=== PATIENT | female | born 1960 | race Caucasian/White ===

== ENCOUNTER 2016-12-25 08:43 | Inpatient (IN) | payer BC ==
[2016-12-03 09:23] VITALS: BMI 38.0
--- NOTE | 2016-12-03 09:52 | PAT Medication Instructions ---
Service Date Dec 03, 2016. Current Home Medication List Ibuprofen Tab (Advil), 400-600 MG PO PRN Metoprolol Tartrate (Lopressor) (Lopressor), 100 MG PO QAM Valsartan/Hctz (Diovan Hct 160MG/25MG), 1 TAB PO QAM [Advair], 1 DOSE INH PRN Medication Instructions For Your Scheduled Surgery - Hold the following medications 10 days prior to surgery per surgeon's instructions: Ibuprofen Tab (Advil), 400-600 MG PO PRN - Hold the following medications the morning of surgery: Valsartan/Hctz (Diovan Hct 160MG/25MG), 1 TAB PO QAM - Take the following medications the morning of surgery with a sip of water OTHERWISE NOTHING TO EAT OR DRINK AFTER MIDNIGHT: [Advair], 1 DOSE INH PRN Metoprolol Tartrate (Lopressor) (Lopressor), 100 MG PO QAM - Take the following medications as scheduled the night before surgery: [Advair], 1 DOSE INH PRN If you have any questions please call us at [phone] or [phone] or [phone]
[2016-12-03 10:50] LABS: BASO % 0.4 %; BASO ABS # 0.02 K/uL (0-0.2); COMPLETE YES; EOS % 2.2 %; HEMATOCRIT 38.7 % (37-47); IG% 0.2 %; LYMPH % 32.8 %; MEAN CELL VOLUME 91.9 fL (80-100); MEAN CORPUSCULAR HEMOGLOBIN 31.1 pg (25-34); MEAN CORPUSCULAR HGB CONC 33.9 g/dl (32-36); MEAN PLATELET VOLUME 10.9 fL (7.4-10.4); NEUT % 57.4 %; PLATELET COUNT 202 K/uL (130-400); RED BLOOD COUNT 4.21 M/uL (4.2-5.4); WHITE BLOOD COUNT 4.57 K/uL (4.8-10.8)
[2016-12-03 10:56] LABS: BUN/CREATININE RATIO 22.4 (10-20); CALCIUM 9.1 mg/dl (8.5-10.1); CREATININE 0.93 mg/dl (0.60-1.20); POTASSIUM 3.4 mmol/L (3.5-5.1)
[2016-12-03 11:21] LABS: MANUAL MICROSCOPIC REQUIRED? NO; URINE APPEARANCE CLEAR (CLEAR); URINE BILIRUBIN NEG (NEG); URINE COLOR YELLOW; URINE NITRITE NEG (NEG); URINE SPECIFIC GRAVITY 1.025 (1.000-1.030); UROBILINOGEN NEG (NEG)
[2016-12-03 11:22] LABS: REVIEW REQ? NO
[~2016-12-25] VITALS: Ht 162.6 cm; Wt 101.3 kg
[2016-12-25] VITALS (8 sets, daily range): BP systolic 106–135; BP diastolic 63–78; PULSE 52–76; TEMP 35.7–36.5; O2SAT 90–98; Ht 162.6 cm; Wt 101.3 kg
[~2016-12-25 08:43] MED LIST: ADVAIR INH; CEFAZOLIN 2000 MG/60 ML D5W IV SCH; IBUP-103 PO; LACTATED RINGER'S 1000ML 1,000 ML IV SCH; METO100T14 PO; VALS160T60 PO
[2016-12-25] MEDS ORDERED: ATROPINE SULFATE 0.1 MG/ML 5ML SYR IV PRN (08:45)
[2016-12-25] MEDS ORDERED: HYDROmorphone INJ 1 MG/ML SYR IV PRN (08:45)
[2016-12-25] MEDS ORDERED: ONDANSETRON INJ 2 MG/ML 2 ML VIAL IV PRN ×2 (08:45→13:00)
[2016-12-25] MEDS ORDERED: PROMETHAZINE HCL INJ 12.5 MG in SODIUM CHLORIDE 0.9% 50ML 50 ML IV PRN ×2 (08:45→13:00)
[2016-12-25] MEDS ORDERED: NURSING VERBAL MED ORDER ONE ×2 (09:45→11:00)
[2016-12-25] MEDS ORDERED: SCOPOLAMINE 1.5 MG TDSY TD ONE (09:56)
[2016-12-25] MEDS ORDERED: LACTATED RINGER'S 1000ML 1,000 ML IV SCH (10:02)
--- NOTE | 2016-12-25 10:05 | History & Physical Bridge Note ---
H&P Re-Evaluation Bridge Note: I have examined the patient, reviewed the History & Physical and in the interval since the performance of the History & Physical I have noted the following changes of clinical significance: No changes noted
--- NOTE | 2016-12-25 10:06 | History and Physical ---
History & Physical Date Dec 25, 2016. Chief Complaint Back and leg pain History of Present Illness The patient is a 56 year old female with complaints of Past Medical/Surgical History Medical Problems: (1) Infection of implant Additional History Hepatic Disease: No Endocrine Disorder: No Kidney Disease: No Hypertension: No Heart Disease: No Bleeding Tendencies: No Infectious Diseases: No Allergies Coded Allergies: BEE STING (Verified Allergy, Severe, SEVERE SWELLING,SOB,ANAPHYLAXIS, 12/25) Iodinated Diagnostic Agents (Verified Allergy, Severe, anaphylaxis, ) Cephalosporins (Verified Allergy, Intermediate, HIVES, 12/25/16) Gabapentin (Verified Adverse Reaction, Intermediate, FACIAL TREMORS, ) Epinephrine (Verified Adverse Reaction, Unknown, PER PATIENT "GIVEN TOO MUCH AFTER BEE STING.", 12/25/16) WAS IN ICU X 3 DAYS Fentanyl (Verified Adverse Reaction, Unknown, FENTANYL PATCH-SEVERE HEADACHES, 12/25/16) Lidocaine (Verified Adverse Reaction, Unknown, HEADACHES, 12/25/16) Home Medications Scheduled Ibuprofen Tab (Advil), 400-600 MG PO PRN Metoprolol Tartrate (Lopressor) (Lopressor), 100 MG PO QAM Valsartan/Hctz (Diovan Hct 160MG/25MG), 1 TAB PO QAM [Advair], 1 DOSE INH PRN Physical Examination Skin: warm/dry, no rash Eyes: normal inspection, EOMI, sclerae normal ENT: normal ENT inspection, pharynx normal Head: normocephalic, atraumatic Neck: supple, no adenopathy, trachea midline Respiratory/Chest: lungs clear, normal breath sounds, no respiratory distress Cardiovascular: regular rate, rhythm, no edema, no murmur Abdomen / GI: normal bowel sounds, non tender Back: normal inspection Extremities: normal inspection, normal range of motion Neurologic/Psych: no motor/sensory deficits, alert, normal reflexes, oriented x 3 Diagnosis Lumbar spinal stenosis L3 4 Plan of Treatment Lumbar decompression and fusion L3 4 removal of instrumentation L4 5
[2016-12-25] MEDS ORDERED: FENTANYL CITRATE INJ 50 MCG/1 ML 2 ML VIAL ONE ×4 (10:08→12:28)
[2016-12-25] MEDS ORDERED: MIDAZOLAM HCL 1 MG/ML 2ML VIAL ONE (10:08)
[2016-12-25] MEDS ORDERED: SCOPOLAMINE 1.5 MG TDSY TD SCH (10:15)
[2016-12-25] MEDS ORDERED: BACITRACIN 50000 UNIT VIAL ONE (10:41)
[2016-12-25] MEDS ORDERED: SODIUM CHLORIDE 0.9% PF 50 ML VIAL ONE (10:41)
[2016-12-25] MEDS ORDERED: CLINDAMYCIN 600 MG/54 ML D5W IV ONE (10:44)
[2016-12-25] MEDS ORDERED: BUPIVACAINE/EPINEPHRINE 0.5% MPF 1:200,000 10 ML VIAL ONE (10:45)
[2016-12-25] MEDS ORDERED: HYDROmorphone INJ 2 MG/ML SYR/VIAL ONE ×3 (11:19→13:04)
[2016-12-25] MEDS ORDERED: ONDANSETRON INJ 2 MG/ML 2 ML VIAL ONE ×2 (11:56→13:05)
[2016-12-25] MEDS ORDERED: RANITIDINE HCL 25 MG/ML INJ ONE (11:56)
[2016-12-25] MEDS ORDERED: METOCLOPRAMIDE HCL INJ 5 MG/ML 2 ML VIAL ONE (11:56)
[2016-12-25] MEDS ORDERED: EpHEDrine SULFATE 50MG/5ML SYR ONE ×2 (11:56→13:05)
[2016-12-25] MEDS ORDERED: ROCURONIUM BROMIDE 10 MG/ML 5 ML VIAL ONE ×2 (11:56→13:05)
[2016-12-25] MEDS ORDERED: PROPOFOL IV EMULSION 10 MG/ML 20 ML VIAL IV ONE (11:56)
[2016-12-25] MEDS ORDERED: DEXAMETHASONE SOD INJ 4 MG/ML VIAL ONE (11:56)
[2016-12-25] MEDS ORDERED: LIDOCAINE HCL 2% 2 ML VIAL (20MG/ML) ONE (11:56)
[2016-12-25] MEDS ORDERED: SODIUM CHLORIDE 0.9% 1000ML 1,000 ML IV SCH (12:52)
[2016-12-25] MEDS ORDERED: FLOSEAL HEMOSTATIC MATRIX 10ML TOP ONE (12:53)
[2016-12-25] MEDS ORDERED: DO NOT ADMINISTER FLU VACCINE PRN ×3 (13:00)
[2016-12-25] MEDS ORDERED: LORAZEPAM 0.5 MG TAB PO PRN (13:00)
[2016-12-25] MEDS ORDERED: ACETAMINOPHEN IV 100 ML IV PRN (13:00)
[2016-12-25] MEDS ORDERED: hydrOXYzine HCL 25 MG TAB PO PRN (13:00)
[2016-12-25] MEDS ORDERED: FAMOTIDINE 20 MG TAB PO PRN (13:00)
[2016-12-25] MEDS ORDERED: ALUMINUM/MAGNESIUM SUSP 30 ML UDC PO PRN (13:00)
[2016-12-25] MEDS ORDERED: MAGNESIUM HYDROXIDE SUSP 30 ML UDC PO PRN (13:00)
[2016-12-25] MEDS ORDERED: LORAZEPAM INJ 0.5 MG in SYRINGE 0.75 ML IV PRN (13:00)
[2016-12-25] MEDS ORDERED: DO NOT ADMINISTER PNEUMOCOCCAL VACCINE PRN ×2 (13:00)
[2016-12-25] MEDS ORDERED: SOD PHOSPHATE/SOD BIPHOSPHATE ENEMA 132 ML BTL PR PRN (13:00)
[2016-12-25] MEDS ORDERED: NALOXONE HCL 0.4 MG/1 ML VIAL/CARP IV PRN ×2 (13:00)
[2016-12-25] MEDS ORDERED: ACETAMINOPHEN 500 MG TAB PO PRN (13:00)
[2016-12-25] MEDS ORDERED: BISACODYL 10 MG SUPP PR PRN (13:00)
[2016-12-25] MEDS ORDERED: METOCLOPRAMIDE HCL INJ 5 MG/ML 2 ML VIAL IV PRN (13:00)
[2016-12-25] MEDS ORDERED: GLYCOPYRROLATE INJ 0.2 MG/ML VIAL ONE (13:05)
[2016-12-25] MEDS ORDERED: NEOSTIGMINE METHYLSULFATE 1 MG/ML 10ML VIAL ONE (13:05)
--- NOTE | 2016-12-25 13:07 | [facility] Operative Report ---
Operative Report Operative Date Dec 25, 2016. Pre-Operative Diagnosis Lumbar spinal stenosis L3-L4 Post-Operative Diagnosis Lumbar spinal stenosis L3-L4 Procedure(s) Performed #1 removal of posterior instrumentation L4 5. #2 expiration of fusion L4 5. #3 lumbar decompression medial facetectomies foraminotomies L3 4. #4 posterior spinal fusion L3 4. #5 placement posterior instrumentation L3 4. #6 interbody fusion L3 4. #7 placement peek cage 12 x 22 at L3 4. #8 placement of locally harvested morcellized autograft and posterior lateral gutters. #9 placement infuse collagen sponge about mask graft the posterior lateral gutters Carmen bone graft in the interbody space. Surgeon Dr. Blair Gunderson Ultrasound Applications Specialist Surgeon(s) Adrian De La Rosa PA-C Estimated Blood Loss 300 cc Findings Lumbar spinal stenosis Specimens Specimen A. Explanted Spine Hardware Description of Procedure Patient was met with preoperative early case discussed all questions are dressed. After informed consent patient was taken back to the operative suite after undergoing intubation was placed in a prone position the [place] table top Lonny frame. All bony promises well-padded eyes inspected to ensure there is no external pressure placed upon them. This point the lumbar spines prepped draped nostril fashion. Sharp dissection with the assistance of Bovie cautery performed onto an exposing the lamina and transverse processes of L3 in the instrumentation L4 5 bilaterally. I proceeded remove the hardware bilaterally explored the fusion mass noting it to be mature and intact. Then performed a complete laminectomy of L3 including medial facet was foraminotomies bilaterally. After complete decompression pedicle screws are placed in L3 and 4 bilaterally with assistance of fluoroscopy in the appropriate size chico placed. Through a trans-foraminal approach on the right a complete discectomy performed and plate created to subcortical bleeding bone and a 12 x 22 mm peek cage filled with Carmen bone graft tapped in position. The rods and then compressed and locked into final position bilaterally. The transverse processes of 3 and 4 burred to subcortical bleeding bone. Infuse collagen sponge mask graft locally harvested morcellized autograft was placed in the posterior lateral gutters. A 15 round TIFFANY drain was inserted. Incision was then closed with 1 Vicryl in the fascia 2-0 Vicryl subcutaneously 4-0 Monocryl for final skin closure Steri-Strip sterile dressing placed patient we can taken to PACU stable condition. Please note Adrian Hancock was present at the entire procedure involved in patient positioning complex portions of the procedure and final skin closure. I attest to the content of the Intraoperative Record and any orders documented therein. Any exceptions are noted below.
--- NOTE | 2016-12-25 13:08 | DIAGNOSTIC IMAGING REPORT ---
LUMBAR SPINE, INTRAOPERATIVE FLUOROSCOPY HISTORY: L3-L4 decompression and fusion. FLUOROSCOPY TIME: 9 seconds. FINDINGS: Intraoperative fluoroscopy was provided for the lumbar spine. 2 fluoroscopic spot images were obtained. Posterior decompression fusion at L3-L4 with pedicle screws and rods. The hardware appears intact. IMPRESSION: Fluoroscopy provided for a L3-L4 posterior decompression and fusion. Electronically signed by: Wilfredo Mahmood M.D. 12/25/2016 1:07 PM Dictated Date/Time: 12/25/2016 1:06 PM
[2016-12-25] MEDS ORDERED: HYDROmorphone HCL 0.5MG/ML 50 ML CASSETTE ONE (13:22)
--- NOTE | 2016-12-25 13:57 | Anesthesiology Progress Note ---
Anesthesia Post Op Note Date & Time Dec 25, 2016 at 13:57 Vital Signs Pain Intensity: 2 Vital Signs Past 12 Hours Date Time Temp Pulse Resp B/P (MAP) Pulse Ox O2 Delivery O2 Flow Rate FiO2 12/25/16 13:15 36.7 57 14 130/68 99 Mask 10 12/25/16 09:05 36.4 52 18 135/75 95 Room Air Notes Mental Status: alert / awake / arousable, participated in evaluation Pt Amnestic to Procedure: Yes Nausea / Vomiting: adequately controlled Pain: adequately controlled Airway Patency, RR, SpO2: stable & adequate BP & HR: stable & adequate Hydration State: stable & adequate Anesthetic Complications: no major complications apparent
[2016-12-25] MEDS: HYDROmorphone HCL 0.5MG/ML 50 ML CASSETTE IV PRN ×2 (14:09→18:52)
[2016-12-25] MEDS: LACTATED RINGER'S 1000ML 1,000 ML IV SCH ×2 (14:48→19:09)
[2016-12-25] MEDS: CHECK SCOPOLAMINE PATCH PLACEMENT SCH ×2 (15:04→22:33)
[2016-12-25] MEDS: CLINDAMYCIN IV 600 MG in DEXTROSE 5% 50ML 50 ML IV SCH (17:25)
[2016-12-25] MEDS: DEXAMETHASONE INJ 6 MG in SYRINGE 0 ML IV SCH (19:18)
[2016-12-25] MEDS: DOCUSATE SODIUM/SENNA 50/8.6MG TAB PO SCH (20:40)
[2016-12-26] MEDS: CLINDAMYCIN IV 600 MG in DEXTROSE 5% 50ML 50 ML IV SCH (01:46)
[2016-12-26] MEDS: LACTATED RINGER'S 1000ML 1,000 ML IV SCH (01:48)
[2016-12-26 03:56] VITALS: BP 116/69; PULSE 84; TEMP 36.8; O2SAT 87
[2016-12-26] MEDS: DEXAMETHASONE INJ 6 MG in SYRINGE 0 ML IV SCH ×2 (03:57→12:12)
[2016-12-26 04:04] VITALS: O2SAT 94
[2016-12-26] MEDS ORDERED: DC PCA ONE (06:00)
[2016-12-26] MEDS ORDERED: HYDROmorphone INJ 0.5 MG/0.5 ML SYR IV PRN (06:00)
[2016-12-26 06:05] LABS: COMPLETE YES; IG% 0.3 %; LYMPH % 5.3 %; LYMPH ABS # 0.61 K/uL (1.2-3.4); MEAN CELL VOLUME 91.4 fL (80-100); MEAN CORPUSCULAR HEMOGLOBIN 30.5 pg (25-34); MEAN CORPUSCULAR HGB CONC 33.3 g/dl (32-36); MEAN PLATELET VOLUME 10.4 fL (7.4-10.4); MONO % 1.5 %; NEUT % 92.9 %; PLATELET COUNT 192 K/uL (130-400); RED BLOOD COUNT 3.61 M/uL (4.2-5.4)
[2016-12-26] MEDS ORDERED: NURSING DECISION MEDICATION ORDER SCH (06:15)
[2016-12-26 06:47] LABS: BUN/CREATININE RATIO 17.6 (10-20); CALCIUM 8.6 mg/dl (8.5-10.1); CREATININE 0.93 mg/dl (0.60-1.20); POTASSIUM 4.1 mmol/L (3.5-5.1)
[2016-12-26 06:49] VITALS: BP 127/64; PULSE 74; TEMP 36.7; O2SAT 91
[2016-12-26] MEDS: CHECK SCOPOLAMINE PATCH PLACEMENT SCH ×3 (08:16→22:32)
[2016-12-26] MEDS: OXYCODONE HCL IR 5 MG TAB (IMMEDIATE RELEASE) PO PRN ×4 (08:20→22:30)
[2016-12-26] MEDS: VALSARTAN 80 MG TAB PO SCH (08:21)
[2016-12-26] MEDS: HYDROCHLOROTHIAZIDE 25 MG TAB PO SCH (08:21)
[2016-12-26] MEDS: METOPROLOL TARTRATE 100 MG TAB PO SCH (08:22)
[2016-12-26] MEDS ORDERED: RXC5 PO (08:34)
--- NOTE | 2016-12-26 08:35 | Discharge Instructions ---
Discharge Instructions Date of Service Dec 26, 2016. Admission Reason for Admission: Lumbar Spinal Stenosis Discharge Discharge Diagnosis / Problem: lumbar stenosis Discharge Goals Goal(s): Improve function Activity Recommendations Activity Limitations: per Instructions/Follow-up section . Instructions / Follow-Up Instructions / Follow-Up ACTIVITY RECOMMENDATIONS: SELF CARE INSTRUCTIONS AFTER THORACIC/LUMBAR FUSIONS 1. You may walk to your tolerance. It is good exercise for your legs and back. Expect some back and intermittent leg aches and pains. 2. You may perform "counter-top" level activities (make a sandwich, neto with a project, etc.). 3. No bending or lifting of more than 10 pounds or back twisting of any nature (roll like a log when turning in bed). 4. You may ride in a car for 20-30 minutes at a time. No driving until after your first visit with your doctor. 5. Frequent changes of position and restricting sitting to 30 minutes at a time will help limit the amount of back spasms and stiffness you may experience. 6. You may discontinue the use of ambulatory aids (cane, crutches, etc.) once your strength and confidence allow. 7. You may profile grinder the shower and let water strike your incision when you arrive home at least once daily. Do not take a tub bath, sit in a hot tub or go into a swimming pool until after your first recheck in the office. SPECIAL CARE INSTRUCTIONS: VERY IMPORTANT TO READ AND REVIEW A. Your surgical incision has been closed with a cosmetic suture under the skin that will dissolve in about 6 weeks. In 14 days, you can use a pair of clean scissors and cut the suture that is left outside of the skin at the ends of your incision. 1. The small skin tapes can be removed 7 days after surgery if they have not fallen off by that point. 2. You may keep the wound open to air as much as possible to promote healing after post-op day number 5 unless told otherwise by your doctor. 3. If you think the wound looks like it is becoming infected (redness or worsening drainage) and/or you are experiencing fever, chill or worsening back pain and muscle spasms, contact the office so that we may evaluate you as soon as possible. B. Complications are uncommon, but please contact us if you have any signs or symptoms of: 1. wound infection (fever higher than 102.5 degrees F, redness, separation of wound, drainage, or increasing pain from the incision) 2. blood clots in legs (pain, swelling, redness and warmth in legs) 3. urinary tract infection (fever higher than 102.5 degrees F, burning upon urination or increased frequency of urination) 4. nerve problems (inability to walk on your toes or heels, numbness, loss of bowel or bladder control) 5. any other symptoms that concern you C. Please call the office at if you have any concerns or questions about your operation or recovery. D. No smoking! Smoking drastically decreases the chance of a solid fusion. E. Do not take any anti-inflammatory medications (Indocin, Advil, Motrin, Aspirin, Naprosyn, etc.) as these may inhibit the chance of a solid fusion. Tylenol is okay to take for pain. MANAGING PAIN AFTER SPINAL SURGERY 1. Narcotic medication is intended for short-term use and will be provided for surgical pain. Surgical pain usually lasts for a period of 4-6 weeks. Narcotic medication includes Percocet, Vicodin, Darvocet, Tylenol #3 or Lortab. 2. Longer-term pain is more appropriately treated with non-narcotic medication such as Tylenol ES. 3. Muscle spasm is not appropriately treated with narcotics. Muscle relaxers such as Soma, Flexeril or Skelaxin can be used along with Tylenol ES. 4. Remember that we all live with some "aches and pains". This is not unusual or uncommon after an injury or as we get older. a. Back pain is expected and may include muscle spasms for 4 to 6 weeks after surgery. The pain should gradually improve. If the pain worsens for no apparent reason, please contact the office. b. Intermittent leg pain may also be experienced and should not be concerned about unless it worsens for no apparent reason. If so, please contact the office. 5. We will provide appropriate medication within the normal guidelines of their prescribed use. We will also be very cautious and aware of potential abuse and extended duration of patients' medication needs. a. Pain medications are for your comfort and to assist with sleep and rest so that the tissue can heal. They are not provided in order to return to normal activity and should not be used through the day. To do so or worsening pain at night can result from ongoing tissue damage and development of tolerance to the prescribed medicine. 6. Please allow 2-3 days to process refills. Prescriptions will not be mailed but must be picked up at the office. FOLLOW UP VISIT: Keep your scheduled follow-up appointment. Any questions, please call the office at . Current Hospital Diet Patient's current hospital diet: Regular Diet Discharge Diet Recommended Diet: Regular Diet Procedures Procedures Performed: #1 removal of posterior instrumentation L4 5. #2 expiration of fusion L4 5. #3 lumbar decompression medial facetectomies foraminotomies L3 4. #4 posterior spinal fusion L3 4. #5 placement posterior instrumentation L3 4. #6 interbody fusion L3 4. #7 placement peek cage 12 x 22 at L3 4. #8 placement of locally harvested morcellized autograft and posterior lateral gutters. #9 placement infuse collagen sponge about mask graft the posterior lateral gutters Carmen bone graft in the interbody space. Pending Studies Studies pending at discharge: no Medical Emergencies . Who to Call and When: Medical Emergencies: If at any time you feel your situation is an emergency, please call 911 immediately. . Non-Emergent Contact Non-Emergency issues call your: Primary Care Provider . "Provider Documentation" section prepared by Blair Gunderson. . VTE Core Measure Inpt VTE Proph given/why not?: Chester Cedeno, SCD's
[2016-12-26] MEDS ORDERED: VALSARTAN/HCTZ 80/12.5 MG TAB PO SCH (09:00)
--- NOTE | 2016-12-26 09:30 | Progress Note ---
Progress Note Date of Service Dec 26, 2016. Progress Note Patient is doing very nicely. Right leg symptoms markedly improved. Back pain controlled. Vital signs stable. Deficits excellent strength testing. Assessment status post lumbar depression fusion replant this time will initiate physical therapy advance bowel regimen anticipate home tomorrow possibly with a drain.
[2016-12-26 11:30] VITALS: BP 103/58; PULSE 74; TEMP 36.9; O2SAT 92
[2016-12-26 15:36] VITALS: BP 99/56; PULSE 60; TEMP 36.9; O2SAT 92
[2016-12-26] MEDS: DOCUSATE SODIUM/SENNA 50/8.6MG TAB PO SCH (20:51)
[2016-12-26 23:13] VITALS: BP 92/55; PULSE 65; TEMP 37; O2SAT 91
[2016-12-27] MEDS ORDERED: POLYETHYLENE (MIRALAX) 17 GM PACK PO SCH (06:00)
[2016-12-27] MEDS: OXYCODONE HCL IR 5 MG TAB (IMMEDIATE RELEASE) PO PRN (07:43)
[2016-12-27] MEDS: CHECK SCOPOLAMINE PATCH PLACEMENT SCH (07:43)
[2016-12-27 08:00] VITALS: BP 122/77; PULSE 64; TEMP 37; O2SAT 95
[2016-12-27] MEDS: HYDROCHLOROTHIAZIDE 25 MG TAB PO SCH (08:58)
[2016-12-27] MEDS: METOPROLOL TARTRATE 100 MG TAB PO SCH (08:58)
[2016-12-27] MEDS: VALSARTAN 80 MG TAB PO SCH (08:58)
--- NOTE | 2016-12-27 09:06 | Discharge Summary ---
Orthopedic Discharge Summary Admission Date/Reason Dec 25, 2016 at 10:00 Lumbar Spinal Stenosis. Discharge Date/Disposition Dec 27, 2016 Home Diagnosis Principal Diagnosis: Lumbar spinal stenosis Admission Physical Exam As per Admitting History & Physical. Hospital Course Patient underwent lumbar decompression fusion tolerated this well as taken to the orthopedic floor postoperatively. Postoperative leash progressed appropriately leg pain markedly improved. Pain well controlled. Subsequently discharged home. Discharge orders and instructions found the chart for further review. Discharge Instructions Please refer to the electronic Patient Visit Report (Discharge Instructions) for additional information.
[2016-12-27 09:35] VITALS: BP 122/77; PULSE 64; TEMP 37; O2SAT 95
== END 2016-12-27 10:14 | disposition home or self-care (01) | DRG 460 ==
LOC: C.ACU 08:43 → C.3E 10:00 → ENRESERV 13:41
PROVIDERS: ADMIT Orthopaedic Surgery Orthopaedic Surgery of the Spine; ATTEND Orthopaedic Surgery Orthopaedic Surgery of the Spine
PROC: 0SG00A1 (ICD-10-PCS; principal; 2016-12-25 10:45)
DX: M48.06 Spinal stenosis, lumbar region (principal)

== ENCOUNTER → 2018-01-05 | Outpatient (CLI) | payer BC ==
[~2018-01-05] MED LIST changes: -ADVAIR INH; -CEFAZOLIN 2000 MG/60 ML D5W IV SCH; -IBUP-103 PO; +IBUP-1449 PO; -LACTATED RINGER'S 1000ML 1,000 ML IV SCH
[2018-01-05 14:31] LABS: BASO % 0.5 %; BASO ABS # 0.03 K/uL (0-0.2); EOS % 1.7 %; EOS ABS # 0.11 K/uL (0-0.5); HEMATOCRIT 41.2 % (37-47); HEMOGLOBIN 13.6 g/dL (12.0-16.0); IG# 0.01 K/uL (0.00-0.02); LYMPH % 37.5 %; LYMPH ABS # 2.39 K/uL (1.2-3.4); MEAN CELL VOLUME 89.8 fL (80-100); MEAN CORPUSCULAR HEMOGLOBIN 29.6 pg (25-34); MEAN PLATELET VOLUME 11.7 fL (7.4-10.4); MONO % 4.9 %; MONO ABS # 0.31 K/uL (0.11-0.59); NEUT % 55.2 %; NEUT ABS # 3.52 K/uL (1.4-6.5); PLATELET COUNT 210 K/uL (130-400); RED CELL DISTRIBUTION WIDTH CV 13.8 % (11.5-14.5); RED CELL DISTRIBUTION WIDTH SD 45.6 fL (36.4-46.3); WHITE BLOOD COUNT 6.37 K/uL (4.8-10.8)
[2018-01-05 14:37] LABS: BLOOD UREA NITROGEN 20 mg/dl (7-18); CALCIUM 9.5 mg/dl (8.5-10.1); CARBON DIOXIDE 28 mmol/L (21-32); CREATININE 0.89 mg/dl (0.60-1.20); GLUCOSE 89 mg/dl (70-99); POTASSIUM 3.9 mmol/L (3.5-5.1); SODIUM 140 mmol/L (136-145)
--- NOTE | 2018-01-05 14:40 | DIAGNOSTIC IMAGING REPORT ---
TWO VIEW CHEST CLINICAL HISTORY: Preoperative examination. FINDINGS: PA and lateral chest radiographs are compared to study dated 10/15/2014 and correlated with chest CT dated 08/23/2013. The cardiomediastinal silhouette is unremarkable. There are foci of bibasilar scarring/atelectasis. No airspace consolidation or pleural effusion is seen. There is no pneumothorax. The skeletal structures are osteopenic. The bony thorax appears intact. Fusion hardware is noted in the upper lumbar spine. IMPRESSION: No active disease in the chest. Electronically signed by: Jamal Moise M.D. 01/05/2018 2:38 PM Dictated Date/Time: 01/05/2018 2:38 PM
[2018-01-05 14:42] LABS: INR 0.9 (0.9-1.1); PTT PATIENT 23.9 SECONDS (21.0-31.0)
== END | disposition home or self-care (01) ==
LOC: C.CPL 13:19
PROVIDERS: ATTEND Orthopaedic Surgery Orthopaedic Surgery of the Spine
DX: Z01.818 Encounter for other preprocedural examination (principal)

== ENCOUNTER 2020-12-27 05:51 | Observation (INO) ==
--- NOTE | 2020-12-10 09:06 | PAT Medication Instructions ---
Medication Instructions Date of Service December 10, 2020 Home Medications metoprolol tartrate 100 mg tablet 50 mg PO QAM valsartan 160 mg-hydrochlorothiazide 25 mg tablet 1 tab PO QAM ibuprofen 400 mg tablet 400 mg PO Q6H PRN mv-min-vit C-ascorb Dy-Vqk-Wjr-herb #124 333 mg-1.7 mg chewable tablet (Airborne (ascorbate sodium)) 2 tab PO QAM solifenacin 10 mg tablet 10 mg PO QAM ASK your surgeon for instructions ibuprofen 400 mg tablet 400 mg PO Q6H PRN STOP taking 2 weeks before surgery (or as soon as possible if surgery is within 2 weeks) mv-min-vit C-ascorb Yn-Tzs-Bqj-herb #124 333 mg-1.7 mg chewable tablet (Airborne (ascorbate sodium)) 2 tab PO QAM DO NOT take the morning of surgery valsartan 160 mg-hydrochlorothiazide 25 mg tablet 1 tab PO QAM solifenacin 10 mg tablet 10 mg PO QAM Take morning of surgery With a small sip of water, OTHERWISE NOTHING TO EAT OR DRINK AFTER MIDNIGHT: metoprolol tartrate 100 mg tablet 50 mg PO QAM Other Notes If you have any questions please call us at [phone] or [phone] or [phone] or [phone]
--- NOTE | 2020-12-13 10:41 | Anesthesiology Consultation ---
Date of Service December 13, 2020 Assessment & Plan (1) Encounter for pre-operative examination: - COVID screening: Per assessment on 12/13: Travel screen negative, no known COVID-19 positive contacts. Patient was COVID positive [place]-time 2020 ([facility]) > symptoms at time of body aches, headache, nausea, loss of taste/smell > resolved except diminished smell. Surgeon arranging preop COVID testing. Awaiting results. - S/P T11-L3 decompression/fusion, L3-L4 hardware removal (01/19/18): Grade view 1, MAC#3, ETT 7.0 at [facility] - Hx PONV: good response with scope patch in the past. Will order for AM DOS. Chart Review Chart Review: Acceptable Risk for Surgery and Patient seen in Pre Admission Testing Teaching & Discussion Pre-Anesthesia Teaching/Discussion Notes: Instructed NPO after midnight before surgery,except medications with 15 cc of water. Medication instructions provided according to the PAT guidelines. History Surgery Operation Date: 12/27/20 07:45 Proposed Procedures p C5-C7 Anterior Cervical Discetomy and Fusion Spinal Cord Monitoring - Blair Gunderson, Height/Weight Height: 5 ft 4 in Weight: 97.3 kg Allergies Allergy/AdvReac Type Severity Reaction Status Date / Time Iodinated Contrast Media Allergy Severe Anaphylaxis Verified 12/04/20 08:35 [Iodinated Contrast- Oral and IV Dye] Cephalosporins Allergy Intermediate Hives Verified 12/04/20 08:35 cephalexin [From Keflex] Allergy Unknown Hives Verified 12/04/20 08:35 gabapentin AdvReac Intermediate Facial Verified 12/13/20 11:14 tremors clarithromycin [From Biaxin] AdvReac Unknown Nausea, Verified 12/13/20 11:14 headache epinephrine AdvReac Unknown Heart Verified 12/13/20 11:14 racing, severe headache fentanyl AdvReac Unknown Headache Verified 12/04/20 08:35 lidocaine AdvReac Unknown Headache Verified 12/13/20 11:14 (with lidocaine patch) BEE STING Allergy Severe Severe Uncoded 12/13/20 11:14 swelling, dyspnea, anaphylaxis Medications Home Medications Medication Instructions Recorded Confirmed Last Taken metoprolol tartrate 100 mg tablet 50 mg PO QAM #0 tab 12/03/16 12/04/20 10/31/19 06:00 valsartan 160 1 tab PO QAM #0 tab 12/03/16 12/04/20 10/31/19 06:00 mg-hydrochlorothiazide 25 mg tablet ibuprofen 400 mg tablet 400 mg PO Q6H PRN 10/26/19 12/04/20 10/29/19 mv-min-vit C-ascorb 2 tab PO QAM 12/04/20 12/04/20 Unknown Hk-Myz-Itm-herb #124 333 mg-1.7 mg chewable tablet (Airborne (ascorbate sodium)) solifenacin 10 mg tablet 10 mg PO QAM 12/04/20 12/04/20 Unknown Past Medical History Medical History Asthma Seasonal Chronic back pain Degenerative disc disease Endometriosis History of COVID-19 Dx [place]-time 2019 ([facility]) > symptoms at time of body aches, headache, nausea, loss of taste/smell > resolved except diminished smell History of DVT (deep vein thrombosis) Remote several years ago (RLE) post-op Migraines Remote hx years ago Neck pain Limited ROM Obesity Peripheral neuropathy right leg numbness s/p back surgery RSD (reflex sympathetic dystrophy) LLE affected (remission x years) Scoliosis Spinal stenosis Urinary, incontinence, stress female Exercise / Class Metabolic Activity II 4-5 Yardwork/Stairs/Walk up hill (one FS (no CP, no SOB)) Past Family History Family History Other No known health problems Past Surgical History Surgical History History of cardiac radiofrequency ablation SVT/PVC's status post ablation 10+ years ago- "controlled" with beta derik History of carpal tunnel release Left History of colonoscopy History of hip surgery Left hip removal (bone spur) Hx of foot surgery Tarsal tunnel release Hx of repair of rotator cuff Right Hx of spinal fusion Lumbar fusion x3, revision x1 T11-L3 decompression/fusion, L3-L4 hardware removal (01/19/18): Grade view 1, MAC#3, ETT 7.0 at [facility] S/P insertion of spinal cord stimulator Subsequently removed S/P ELAN-BSO Past Anesthesia History No Hx of Anesthesia Complications (except PONV) and No Family Hx of Anesthesia Complications History of PONV No Hx of Motion Sickness and History of PONV (remote issue; no issue with more recent surgery with scopalamine patch) STOP BANG Total 3 Social History Smoking Status: Never smoker Do You Dip or Chew Tobacco: No Hx Alcohol Use: No Hx Substance Use: No substance use type: does not use Review of Systems Patient denies chest pain, shortness of breath, dyspnea on exertion, fever, chills, cough, wheezing, palpitations. Physical Exam Vital Signs VITALS BP 109/75 P 58 TEMP 98.4 SP02 96%RA RESP 18 PHYSICAL Decreased cervical extension range of motion 2/2 cervicalgia. Full TMJ range of motion. TMD 1 finger breaths Mallampati Score 4 Dentition: missing sides Lungs: clear throughout to auscultation Cardiac: regular rate and rhythm, no murmurs noted Spine: normal Carotid arteries: negative bruit Extremities: no edema Lab Results Anesthesia Preop Results Results Anesthesia Widget: WBC 5.15 K/uL (4.8-10.8) 12/13/20 Hgb 12.8 g/dL (12.0-16.0) 12/13/20 Hct 38.9 % (37-47) 12/13/20 Plt 218 K/uL (130-400) 12/13/20 PT 9.8 Seconds (9.0-12.0) 12/13/20 PTT 25.1 Seconds (21.0-31.0) 12/13/20 INR 1.0 (0.9-1.1) 12/13/20 Urine Color Yellow 12/13/20 Urine Appearance Clear (Clear) 12/13/20 Urine pH 5.5 (4.5-7.5) 12/13/20 Urine Specific Protection 1.024 (1.000-1.030) 12/13/20 Urine Protein Negative (Negative) 12/13/20 Urine Glucose (UA) Negative (Negative) 12/13/20 Urine Ketones Negative (Negative) 12/13/20 Urine Blood Negative (Negative) 12/13/20 Urine Nitrite Negative (Negative) 12/13/20 Urine Bilirubin Negative (Negative) 12/13/20 Urine Urobilinogen Negative (Negative) 12/13/20 Urine Leukocyte Esterase Trace (Negative) H 12/13/20 Urine WBC (Auto) 1-5 /hpf (0-5) 12/13/20 Urine RBC (Auto) 0-4 /hpf (0-4) 12/13/20 Urine Hyaline Casts (Auto) 1-5 /lpf (0-5) 12/13/20 Urine Epithelial Cells (Auto) >30 /lpf (0-5) H 12/13/20 Urine Bacteria (Auto) Negative (Negative) 12/13/20 Blood Type A Negative 12/13/20 Antibody Screen NEGATIVE 12/13/20 Testing Laboratory Results 12/03/20 SODIUM 143 POTASSIUM 3.9 CHLORIDE 106 CO2 25 BUN 21 CREATININE 1.0 GLUCOSE 106 Electrocardiogram Date: 12/13/20 Findings: + SB @ (52) Chest X-Ray Date: 12/13/20 FINDINGS: No pneumothorax or no pleural effusions. The heart is borderline enlarged. No focal lung consolidations to suggest pneumonia. No evidence for pulmonary edema. Thoracolumbar spinal fusion rods are partially visualized. There are low lung volumes. IMPRESSION: Borderline enlargement of the cardiac silhouette. Otherwise, no acute process within the chest.
[2020-12-27] MEDS ORDERED: LR 15ML/HR IV SCH (06:00)
[2020-12-27] MEDS ORDERED: CeleBREX 200 MG CAP PO SCH (06:00)
[2020-12-27] MEDS ORDERED: Scopolamine 1 MG TDSY TD SCH (06:00)
[2020-12-27] MEDS ORDERED: ACETAMINOPHEN 500 MG TAB PO SCH (06:00)
[2020-12-27] MEDS ORDERED: GABAPENTIN 600 MG DOSE PO SCH (06:00)
[2020-12-27] MEDS ORDERED: PROPOFOL IV EMULSION 10 MG/ML 100 ML VIAL IV ONE (06:45)
[2020-12-27] MEDS ORDERED: ONDANSETRON INJ 2 MG/ML 2 ML VIAL IV PRN (06:57)
[2020-12-27] MEDS ORDERED: ePHEDrine sulfate 50 MG/ML AMP IV PRN (06:57)
[2020-12-27] MEDS ORDERED: ATROPINE SULFATE 0.1 MG/ML 10ML SYR IV PRN (06:57)
[2020-12-27] MEDS ORDERED: LARYING-O-JET KIT (LTA) ONE (07:03)
[2020-12-27] MEDS ORDERED: HYDROmorphone INJ 2 MG/ML SYR/VIAL ONE (07:03)
[2020-12-27] MEDS ORDERED: LIDOCAINE 2% 2 ML VIAL/AMP(20MG/ML) INFIL ONE (07:03)
[2020-12-27] MEDS ORDERED: DEXAMETHASONE SOD INJ 4 MG/ML VIAL ONE (07:03)
[2020-12-27] MEDS ORDERED: MIDAZOLAM HCL 1 MG/ML 2ML VIAL ONE (07:03)
[2020-12-27] MEDS ORDERED: PROPOFOL IV EMULSION 10 MG/ML 20 ML VIAL IV ONE ×2 (07:03→09:49)
[2020-12-27] MEDS ORDERED: ONDANSETRON INJ 2 MG/ML 2 ML VIAL ONE (07:03)
--- NOTE | 2020-12-27 07:27 | History & Physical Bridge Note ---
Date of Service December 27, 2020 History & Physical Bridge Note I have examined the patient, reviewed the History & Physical and in the interval since the performance of the History & Physical I have noted the following changes of clinical significance: no changes noted
--- NOTE | 2020-12-27 07:29 | History & Physical Report ---
Date of Service December 27, 2020 Assessment & Plan (1) Cervical stenosis of spinal canal: Plan: C5-C7 anterior cervical discectomy and fusion History of Present Illness Chief Complaint: Neck and arm pain Primary Care Provider: Brad Long MD This is a 52-year-old female presents with worsening neck and arm symptoms. Failing since course of nonoperative care she is here for surgical invention. Allergies Allergy/AdvReac Type Severity Reaction Status Date / Time Iodinated Contrast Media Allergy Severe Anaphylaxis Verified 12/27/20 06:11 [Iodinated Contrast- Oral and IV Dye] Cephalosporins Allergy Intermediate Hives Verified 12/27/20 06:11 cephalexin [From Keflex] Allergy Unknown Hives Verified 12/27/20 06:11 gabapentin AdvReac Intermediate Facial Verified 12/27/20 06:11 tremors clarithromycin [From Biaxin] AdvReac Unknown Nausea, Verified 12/27/20 06:11 headache epinephrine AdvReac Unknown Heart Verified 12/27/20 06:11 racing, severe headache fentanyl AdvReac Unknown Headache Verified 12/27/20 06:11 lidocaine AdvReac Unknown Headache Verified 12/27/20 06:11 (with lidocaine patch) BEE STING Allergy Severe Severe Uncoded 12/27/20 06:11 swelling, dyspnea, anaphylaxis Home Medications Medication Instructions Recorded Confirmed Type metoprolol tartrate 100 mg tablet 50 mg PO QAM #0 tab 12/03/16 12/27/20 History valsartan 160 1 tab PO QAM #0 tab 12/03/16 12/27/20 History mg-hydrochlorothiazide 25 mg tablet (Diovan HCT) ibuprofen 400 mg tablet 400 mg PO Q6H PRN 10/26/19 12/27/20 History mv-min-vit C-ascorb 2 tab PO QAM 12/04/20 12/27/20 History Va-Mcn-Tlf-herb #124 333 mg-1.7 mg chewable tablet (Airborne (ascorbate sodium)) solifenacin 10 mg tablet (Vesicare) 10 mg PO QAM 12/04/20 12/27/20 History Past Med/Surg History Medical History Asthma Seasonal Chronic back pain Degenerative disc disease Endometriosis History of COVID-19 Dx Judy-time 2019 ([facility]) > symptoms at time of body aches, headache, nausea, loss of taste/smell > resolved except diminished smell History of DVT (deep vein thrombosis) Remote several years ago (RLE) post-op Migraines Remote hx years ago Neck pain Limited ROM Obesity Peripheral neuropathy right leg numbness s/p back surgery RSD (reflex sympathetic dystrophy) LLE affected (remission x years) Scoliosis Spinal stenosis Urinary, incontinence, stress female Surgical History History of cardiac radiofrequency ablation SVT/PVC's status post ablation 10+ years ago- "controlled" with beta derik History of carpal tunnel release Left History of colonoscopy History of hip surgery Left hip removal (bone spur) Hx of foot surgery Tarsal tunnel release Hx of repair of rotator cuff Right Hx of spinal fusion Lumbar fusion x3, revision x1 T11-L3 decompression/fusion, L3-L4 hardware removal (01/19/18): Grade view 1, MAC#3, ETT 7.0 at [facility] S/P insertion of spinal cord stimulator Subsequently removed S/P ELAN-BSO Family History Other No known health problems Social History (Updated 12/04/20 @ 09:01 by Zaria Leonardo RN) Smoking Status: Never smoker Second Hand Exposure: Yes (MOTHER SMOKED); Do You Dip or Chew Tobacco: No; Hx Alcohol Use: No Hx Substance Use: No Preferred Language: Estonian Communication Ability: Effective Lens Dotter Required: No Beliefs That Will Affect Care: None Current Living Situation: Spouse and Family Current Living Situation Comment: DAUGHTER AND SPOUSE LIVES WITH PT current occupational status: other current occupation: HOMEMAKER Other Information That Helps Us Care for You: No Feels Safe at Home: Yes Safety Concerns: Feels Safe At This Time Assistive Devices: Contacts Assistive Devices Comment: PT WILL REMOVE CONTACTS DOS Physical Exam Physical Exam: Patient is alert and oriented Heart regular rhythm Lungs clear to auscultation On physical exam she demonstrates significant Spurling sign to the right with weakness affecting the biceps triceps and grasp compared to the left. Results & Data ([facility]) Vital Signs (Past 12 Hours) Vital Signs Temp Pulse Resp BP Pulse Ox 12/27/20 06:18 37.2 C 62 20 162/86 H 98
[2020-12-27] MEDS ORDERED: CLINDAMYCIN 600 MG/54 ML D5W IV ONE (07:34)
[2020-12-27] MEDS ORDERED: FLOSEAL HEMOSTATIC MATRIX 10ML TOP ONE (08:36)
[2020-12-27] MEDS ORDERED: ROCURONIUM BROMIDE 10 MG/ML 5 ML VIAL IV ONE (08:41)
--- NOTE | 2020-12-27 09:23 | Operative Report ---
Post Operative Report Pre & Post Diagnosis Operation Date: 12/27/20 07:45 Pre-Op Diagnosis: Cervical spinal stenosis with radiculopathy Post-Op Diagnosis: Same I identified the patient and participated in the time-out.: Yes Procedure Operation Date: 12/27/20 07:45 Actual Procedures #1 anterior cervical discectomy with bilateral foraminotomies C5-6 and C6-C7. #2 anterior cervical arthrodesis C5-6 and C6-C7. #3 placement of 7 mm spiral cage filled with I factor C5-6 and C6-7. #4 5 complete and screws across C5-6 and C6-7. Surgeon Blair Gunderson, DO Calendering Supervisor Adrian Hancock Estimated Blood Loss 20 Findings Consistent with Post-Op Diagnosis Specimens None Indications This is a 52-year-old female known to me the presents with above-mentioned diagnosis after an extensive course of nonoperative care she is here for surgical invention. Description of Procedure Patient met with identified informed consent obtained. Patient was then taken to the operative suite underwent ablation placed in supine position Can table head Styles wet process miller head. All bony prominences well-padded eyes inspected to ensure no external pressure placed upon the bed this point anterior cervical spine was prepped and draped in a sterile fashion. With assistance of fluoroscopy identified the C6 vertebral body and skin incision was made overlying this region. Blunt dissection was then carried out down to expose the anterior cervical spine from C5-C7. Self-retaining retractors placed. Then performed a complete discectomy of C5-C6 out to the uncovertebral joints bilaterally. [place] distracting pins were utilized to assist in visualization. Removed all posterior annular fibers longitudinal ligament bilateral foraminotomies performed. I then inserted a 7 mm Spira cage filled with I factor. Distracting apparatus was removed and I proceeded to C6-C7. Again complete discectomy performed at the uncovertebral joints bilaterally. [place] distracting pins again utilized. Removed all posterior fibers longitudinal ligament bilateral foraminotomies performed. Endplates were then burred to subcortical bleeding bone and 7 mm spiral cage filled with I factor tapped in position. Distracting apparatus was removed all anterior osteophytes burred to a smooth cortical surface and a solis plate and screws applied with the assistance of fluoroscopy. The incision was then copiously irrigated explored to ensure no damage to surrounding structures remaining bleeding. 10 round TIFFANY drain inserted. Incision was then closed with 2 Vicryl in a fashion of 4 Monocryl for final skin closure. Steri-Strip sterile dressings placed. Patient will continue PACU stable condition. Please note spinal cord monitoring was utilized at the procedure no changes noted. Lastly Adrain Hancock was present at the entire procedure involved the patient positioning complex portions of the surgery and final skin closure. I attest to the content of the Intraoperative Record and any orders documented therein. Any exceptions are noted below.
[2020-12-27] MEDS ORDERED: ALBUTEROL HFA INHALER 8.5 GM ONE (09:49)
[2020-12-27] MEDS: HYDROmorphone INJ 2 MG/ML SYR/VIAL IV PRN ×5 (10:02→11:06)
--- NOTE | 2020-12-27 10:14 | Fluoroscopy Report ---
FL cervical 2-3V HISTORY: 60 years-old Female ACDF C5-C7 COMPARISON: None TECHNIQUE: 2 spot fluoroscopic images of the cervical spine were obtained utilizing 7.2 seconds fluor oscopy time FINDINGS: Anterior plate and screw fusion hardware with discectomy changes are noted at what appears to be the C5-C7 levels. The visualized hardware appears intact. Moderate C4-C5 intervertebral disc space narrow ing with spondylitic spurring. Suboptimally visualized lower cervical spine secondary to overlying so ft tissue. Surgical drainage catheter and endotracheal tube. IMPRESSION: Fluoroscopic assistance as above. ACT 112: Negative or not required by law. The above report was generated using voice recognition software. It may contain grammatical, syntax o r spelling errors. Electronically signed by: Sumeet Oliveira M.D. 12/27/2020 10:12 AM
[2020-12-27] MEDS ORDERED: ACETAMINOPHEN 1,000 MG/100 ML VIAL IV STA (10:55)
--- NOTE | 2020-12-27 11:48 | Anesthesiology Progress Note ---
Date of Service December 27, 2020 Anesthesia Post Procedure Vital Signs Vital Signs: Temp Pulse Pulse Resp BP BP Pulse Ox 12/27/20 11:45 48 L 12 127/77 94 12/27/20 11:35 56 L 20 153/76 H 98 12/27/20 11:20 55 L 20 134/73 96 12/27/20 11:10 60 12 128/85 95 12/27/20 11:00 45 L 12 129/72 95 12/27/20 10:50 43 L 14 121/80 97 12/27/20 10:40 48 L 13 144/72 H 97 12/27/20 10:30 48 L 12 130/66 96 12/27/20 10:20 43 L 14 146/74 H 95 12/27/20 10:10 51 L 20 140/76 95 12/27/20 10:00 55 L 20 130/80 95 12/27/20 09:50 54 L 16 141/71 H 94 12/27/20 09:42 36.3 C L 61 12 143/83 H 100 12/27/20 06:18 37.2 C 62 20 162/86 H 98 Pain Intensity Neck: Pain Intensity: 5 Transfer of Care Handoff Completed per policy Notes Mental Status: alert / awake / arousable and participated in evaluation Patient Amnestic to Procedure: Yes Nausea / Vomiting: adequately controlled Pain: adequately controlled Airway Patency, RR, SpO2: stable & adequate BP & HR: stable & adequate Hydration State: stable & adequate Anesthetic Complications: no major complications apparent
[2020-12-27] MEDS: LACTATED RINGER'S 1,000 ML IV SCH ×2 (13:40→22:25)
[2020-12-27] MEDS ORDERED: ACETAMINOPHEN 500 MG TAB PO PRN (13:59)
[2020-12-27] MEDS ORDERED: dexAMETHasone 8 MG in SYRINGE 0 ML IV PRN (13:59)
[2020-12-27] MEDS ORDERED: ALUMINUM/MAGNESIUM SUSP 30 ML UDC PO PRN (13:59)
[2020-12-27] MEDS ORDERED: DO NOT ADMINISTER PNEUMOCOCCAL VACCINE PRN (13:59)
[2020-12-27] MEDS ORDERED: PROMETHAZINE HCL 12.5 MG in SODIUM CHLORIDE 0.9% 50 ML IV PRN (13:59)
[2020-12-27] MEDS ORDERED: FAMOTIDINE 20 MG TAB PO PRN (13:59)
[2020-12-27] MEDS ORDERED: LORazepam 0.5 MG/1 ML VIAL IV PRN (13:59)
[2020-12-27] MEDS ORDERED: traMADol HCL 50 MG TABLET PO PRN (13:59)
[2020-12-27] MEDS ORDERED: diphenhydrAMINE Capsule 25 MG CAP PO PRN (13:59)
[2020-12-27] MEDS ORDERED: RACEPINEPHRINE 2.25% NEBU SOLN 0.5 ML VIAL INH PRN (13:59)
[2020-12-27] MEDS ORDERED: DO NOT ADMINISTER FLU VACCINE PRN (13:59)
[2020-12-27] MEDS ORDERED: bisacodyL 10 MG SUPP PR PRN (13:59)
[2020-12-27] MEDS ORDERED: HYDROmorphone INJ 0.5 MG/0.5 ML SYR IV PRN (13:59)
[2020-12-27] MEDS ORDERED: hydrOXYzine HCl 25 MG TAB PO PRN (13:59)
[2020-12-27] MEDS ORDERED: METOCLOPRAMIDE HCL INJ 5 MG/ML 2 ML VIAL IV PRN (13:59)
[2020-12-27] MEDS ORDERED: MAGNESIUM HYDROXIDE SUSP 30 ML UDC PO PRN (13:59)
[2020-12-27] MEDS ORDERED: ACETAMINOPHEN 1,000 MG/100 ML VIAL IV PRN (13:59)
[2020-12-27] MEDS ORDERED: LORazepam 0.5 MG TAB PO PRN (13:59)
[2020-12-27] MEDS ORDERED: SOD PHOSPHATE/SOD BIPHOSPHATE ENEMA 132 ML BTL PR PRN (13:59)
[2020-12-27] MEDS ORDERED: ONDANSETRON 4 MG OD TAB PO PRN (13:59)
[2020-12-27] MEDS ORDERED: NALOXONE HCL 0.4 MG/1 ML VIAL/CARP IV PRN (13:59)
[2020-12-27] MEDS ORDERED: HYDROmorphone INJ 1 MG/ML SYRINGE IV PRN (13:59)
--- NOTE | 2020-12-27 14:45 | Consultation ---
Date of Consultation December 27, 2020 Assessment & Plan (1) Sinus bradycardia: Patient is 60-year-old female with PMH HTN, HLD, asthma, sinus bradycardia, s/p ablation for SVT/PVCs is seen in medical consultation for bradycardia s/p ACDF today to by Dr. Gunderson. Patient with pulse in 40s-50s during procedure and postop on the floor is noted to have heart rate the 40s and dropped down to 38. Patient is asymptomatic. No prior echo on record. EKG obtained: Rate 41, sinus bradycardia BP: 143/86. Will transfer patient to PCU for cardiac monitoring Patient had her metoprolol succinate 50 mg this morning and also underwent anesthesia which may be causing worsening sinus bradycardia Hold metoprolol succinate for now Obtain CBC, BMP, magnesium, phosphorus, TSH (2) S/P spinal surgery: Post op day# 0 S/P ACDF by Dr Gunderson EBL#20ml pain management per ortho wound management per ortho PT/OT as appropriate DVT prophylaxis per ortho monitor H&H for acute blood loss anemia; pre-op Hgb: 12.8 (3) HTN (hypertension): Hold metoprolol succinate secondary to sinus bradycardia Continue valsartan Hold HCTZ for tomorrow and reassess (4) Urinary, incontinence, stress female: Continue Vesicare DVT Prophylaxis SCDs per ortho spine Disposition per primary service Follows with Dr Long for routine care Pt was seen and care coordinated with Dr Avila. See addendum Thank you for this consultation. We will follow the patient with you during their hospital stay. You can [facility] a [facility] via [facility] Supervising Physician Co-Signing Physician Notes 60-year-old lady with PMH of SVT/PVCs status post ablation, sinus bradycardia, asthma, hypertension, hyperlipidemia was consulted for bradycardia status post ACDF 12/[address] Gunderson. She is being managed in the floor for the following: #. Sinus bradycardia Patient has history of heart rate in 50s to 60s, patient is on metoprolol Slightly exacerbated now likely secondary to anesthesia, also patient had taken her metoprolol earlier today. Patient did not have symptoms at bedside, did not have symptoms in the past as well. Will hold metoprolol for now Continue to monitor #. Status post spinal surgery Status post ACDF 12/[address] Gunderson, EBL 20 mL Management per Ortho. Monitor for acute blood loss anemia, preop hemoglobin 12.8 #. Other chronic medical condition Continue home medications GENERAL: Alert and oriented x3. NAD, on RA. HEENT: No pallor, no icterus. Pupils equal, round and reactive to light. Oral mucosa moist. Cervical collar in place, in mild distress 2/2 pain NECK: No JVD, no neck masses. HEART: S1 and S2 heard. Regular rate and rhythm. No murmur, no gallop. RESPIRATORY SYSTEM: Normal AP diameter. No accessory muscle use. No wheezing, no crackles. ABDOMEN: Soft, bowel sounds present, nontender, no distention. CENTRAL NERVOUS SYSTEM: Alert and oriented x3. No facial droop. Speech is clear. Obeys simple commands. Moves extremities. EXTREMITIES: No edema, no erythema seen. Distal NV status normal. I have seen and examined the patient and have discussed the case with the provider above. I agree with the assessment and plan as stated. . History of Present Illness Requesting Physician: Dr Gunderson Reason for Consultation: Bradycardia; Post op medical management Attending Physician: Blair Gunderson, DO History of Present Illness Patient is 60-year-old female with PMH HTN, HLD, asthma, sinus bradycardia, s/p ablation for SVT/PVCs is seen in medical consultation for bradycardia s/p ACDF today to by Dr. Gunderson. Postop patient reports still feels a little drowsy from anesthesia and has some mild nausea. Denies vomiting, headache, shortness of breath, chest pain, dizziness, syncope. Feels neck pain is controlled at this time. Has paresthesias fingers which had prior to surgery. Alerted by patient's nurse that her pulse is in the 40s and dropped down to 38. Upon review of prior hospitalizations patient with history of sinus bradycardia. Denies any dizziness/lightheadedness, chest pain, shortne ss of breath or syncopal events prehospital. Denies fever/chills, diaphoresis, N/V/D/C, palpitations, cough, choking, otalgia, rhinorrhea, abdominal pain, extremity weakness, extremity edema, rashes, urinary symptoms. Pt reports previously followed with [facility] cardiology and had her [place] [facility] Allergies Allergy/AdvReac Type Severity Reaction Status Date / Time Iodinated Contrast Media Allergy Severe Anaphylaxis Verified 12/27/20 06:11 [Iodinated Contrast- Oral and IV Dye] Cephalosporins Allergy Intermediate Hives Verified 12/27/20 06:11 cephalexin [From Keflex] Allergy Unknown Hives Verified 12/27/20 06:11 gabapentin AdvReac Intermediate Facial Verified 12/27/20 06:11 tremors clarithromycin [From Biaxin] AdvReac Unknown Nausea, Verified 12/27/20 06:11 headache epinephrine AdvReac Unknown Heart Verified 12/27/20 06:11 racing, severe headache fentanyl AdvReac Unknown Headache Verified 12/27/20 06:11 lidocaine AdvReac Unknown Headache Verified 12/27/20 06:11 (with lidocaine patch) BEE STING Allergy Severe Severe Uncoded 12/27/20 06:11 swelling, dyspnea, anaphylaxis Home Medications Medication Instructions Recorded Confirmed Type metoprolol tartrate 100 mg tablet 50 mg PO QAM #0 tab 12/03/16 12/27/20 History valsartan 160 1 tab PO QAM #0 tab 12/03/16 12/27/20 History mg-hydrochlorothiazide 25 mg tablet (Diovan HCT) ibuprofen 400 mg tablet 400 mg PO Q6H PRN 10/26/19 12/27/20 History mv-min-vit C-ascorb 2 tab PO QAM 12/04/20 12/27/20 History Sw-Rbf-Csu-herb #124 333 mg-1.7 mg chewable tablet (Airborne (ascorbate sodium)) solifenacin 10 mg tablet (Vesicare) 10 mg PO QAM 12/04/20 12/27/20 History oxycodone 5 mg tablet 5 mg PO Q6H PRN #20 tab 12/27/20 Rx tramadol 50 mg tablet 50 mg PO Q6H PRN #20 tab 12/27/20 Rx Patient History Medical History (Updated 12/27/20 @ 15:15 by Rosanne Wise PA-C) Asthma Seasonal Chronic back pain Degenerative disc disease Endometriosis History of COVID-19 Dx Judy-time 2019 ([facility]) > symptoms at time of body aches, headache, nausea, loss of taste/smell > resolved except diminished smell History of DVT (deep vein thrombosis) Remote several years ago (RLE) post-op HTN (hypertension) Migraines Remote hx years ago Neck pain Limited ROM Obesity Peripheral neuropathy right leg numbness s/p back surgery RSD (reflex sympathetic dystrophy) LLE affected (remission x years) Scoliosis Sinus bradycardia Spinal stenosis Urinary, incontinence, stress female Surgical History (Updated 12/27/20 @ 15:06 by Rosanne Wise PA-C) History of cardiac radiofrequency ablation SVT/PVC's status post ablation 10+ years ago- "controlled" with beta derik History of carpal tunnel release Left History of colonoscopy History of hip surgery Left hip removal (bone spur) Hx of foot surgery Tarsal tunnel release Hx of repair of rotator cuff Right Hx of spinal fusion Lumbar fusion x3, revision x1 T11-L3 decompression/fusion, L3-L4 hardware removal (01/19/18): Grade view 1, MAC#3, ETT 7.0 at [facility] S/P insertion of spinal cord stimulator Subsequently removed S/P ELAN-BSO Family History Other No known health problems Social History Smoking Status: Never smoker Second Hand Exposure: Yes (MOTHER SMOKED); Do You Dip or Chew Tobacco: No; Hx Alcohol Use: No Hx Substance Use: No Preferred Language: Polish Communication Ability: Effective Business Manager Required: No Beliefs That Will Affect Care: None Current Living Situation: Spouse and Family Current Living Situation Comment: DAUGHTER AND SPOUSE LIVES WITH PT current occupational status: other current occupation: HOMEMAKER Other Information That Helps Us Care for You: No Feels Safe at Home: Yes Safety Concerns: Feels Safe At This Time Assistive Devices: Contacts Assistive Devices Comment: PT WILL REMOVE CONTACTS DOS Review of Systems Review of Systems: All systems reviewed & are unremarkable except as noted in HPI & below Physical Exam Physical Exam: General: no distress, obese Head: normocephalic, atraumatic Eyes: conjunctiva non-injected, anicteric ENT: normal inspection external ears, nose, mucous membranes moist Neck: +C-collar in place, trachea midline, surgical dressing to anterior neck is dry and in place, TIFFANY drain with light amount of serosanguineous drainage Lungs: clear, no respiratory distress, no wheezing/rhonchi/rales CV: Regular rhythm, bradycardia-rate 42, no pretibial edema Abd: normal BS, soft, non-tender Ext: no cyanosis, no calf tenderness bilateral pedal pushes and pulls intact, bilateral washer blanket strength strong and equal, distal pulses intact bilaterally, sensation to light touch intact Neuro: A&O x 3, no focal deficits noted, normal affect Skin: warm, dry Results & Data ([facility]) Vital Signs (Past 12 Hours) Vital Signs Temp Pulse Pulse Pulse Resp BP BP 12/27/20 13:59 36.3 C L 52 L 16 138/87 12/27/20 13:02 36.5 C 48 L 14 139/70 12/27/20 12:30 43 L 14 118/72 12/27/20 12:00 50 L 14 122/72 12/27/20 11:45 48 L 12 127/77 12/27/20 11:35 56 L 20 153/76 H 12/27/20 11:20 55 L 20 134/73 12/27/20 11:10 60 12 128/85 12/27/20 11:00 45 L 12 129/72 12/27/20 10:50 43 L 14 121/80 12/27/20 10:40 48 L 13 144/72 H 12/27/20 10:30 48 L 12 130/66 12/27/20 10:20 43 L 14 146/74 H 12/27/20 10:10 51 L 20 140/76 12/27/20 10:00 55 L 20 130/80 12/27/20 09:50 54 L 16 141/71 H 12/27/20 09:42 36.3 C L 61 12 143/83 H 12/27/20 06:18 37.2 C 62 20 162/86 H Pulse Ox 12/27/20 13:59 95 12/27/20 13:02 93 12/27/20 12:30 97 12/27/20 12:00 94 12/27/20 11:45 94 12/27/20 11:35 98 12/27/20 11:20 96 12/27/20 11:10 95 12/27/20 11:00 95 12/27/20 10:50 97 12/27/20 10:40 97 12/27/20 10:30 96 12/27/20 10:20 95 12/27/20 10:10 95 12/27/20 10:00 95 12/27/20 09:50 94 12/27/20 09:42 100 12/27/20 06:18 98
[2020-12-27 15:32] LABS: Hematocrit (blood only) 40.8 % (37-47); Hemoglobin 13.6 g/dL (12.0-16.0); Mean Corpuscular Hemoglobin 30.2 pg (25-34); Mean Corpuscular Volume 90.7 fL (80-100); Mean Platelet Volume 11.1 fL (7.4-10.4); Platelet Count 211 K/uL (130-400); RDW Coefficient of Variation 13.7 % (11.5-14.5); RDW Standard Deviation 45.1 fL (36.4-46.3); White Blood Count 9.85 K/uL (4.8-10.8)
[2020-12-27 15:33] LABS: Mean Corpuscular Hgb Conc 33.3 g/dL (32-36)
[2020-12-27 15:35] LABS: BUN Creatinine Ratio 29.2 (10-20); Calcium 8.7 mg/dl (8.5-10.1); Creatinine Clr Calc Pharmacy 69.6 ml/min; Est GFR (African American) 71.9 ml/min; Est GFR (Non-African American) 62.1 ml/min; Magnesium 2.4 mg/dl (1.8-2.4); Phosphorus 4.3 mg/dl (2.5-4.9); Potassium 4.1 mmol/L (3.5-5.1)
[2020-12-27] MEDS ORDERED: Scopolamine CHECK PATCH PLACEMENT SCH (16:00)
[2020-12-27] MEDS ORDERED: Nursing to Pharmacy Communication SCH (16:15)
[2020-12-27] MEDS: CLINDAMYCIN 600 MG in DEXTROSE 5% 50 ML IV SCH (16:42)
--- NOTE | 2020-12-27 17:46 | Electrocardiogram Report ---
Test Reason : Blood Pressure : / mmHG Vent. Rate : 041 BPM Atrial Rate : 041 BPM P-R Int : 172 ms QRS Dur : 094 ms QT Int : 516 ms P-R-T Axes : 042 011 029 degrees QTc Int : 425 ms Marked sinus bradycardia Abnormal ECG When compared with ECG of 13-DEC-2020 11:05, T wave amplitude has increased in Anterior leads Confirmed by Karel White ([id number]) on 12/27/2020 5:45:42 PM Referred By: Blair Gunderson Confirmed By:Milton White
[2020-12-27] MEDS: ONDANSETRON INJ 2 MG/ML 2 ML VIAL IV PRN ×2 (18:01→22:01)
[2020-12-27] MEDS ORDERED: SCOPOLAMINE 1 MG TDSY TD ONE (18:30)
[2020-12-27] MEDS: CHECK SCOPOLAMINE PATCH PLACEMENT SCH (18:30)
[2020-12-27] MEDS ORDERED: DOCUSATE SODIUM/SENNA 50/8.6MG TAB PO SCH (21:00)
[2020-12-28] MEDS: CHECK SCOPOLAMINE PATCH PLACEMENT SCH ×2 (00:08→07:58)
[2020-12-28] MEDS: CLINDAMYCIN 600 MG in DEXTROSE 5% 50 ML IV SCH (00:08)
[2020-12-28] MEDS: oxyCODONE HCL IR 5 MG TAB (IMMEDIATE RELEASE) PO PRN ×2 (04:47→11:58)
[2020-12-28] MEDS ORDERED: POLYETHYLENE (MIRALAX) 17 GM PACK PO SCH (06:00)
[2020-12-28 06:31] LABS: Hematocrit (blood only) 38.8 % (37-47); Hemoglobin 12.7 g/dL (12.0-16.0); Mean Corpuscular Hemoglobin 30.4 pg (25-34); Mean Corpuscular Hgb Conc 32.7 g/dL (32-36); Mean Corpuscular Volume 92.8 fL (80-100); Mean Platelet Volume 10.9 fL (7.4-10.4); Platelet Count 208 K/uL (130-400); RDW Coefficient of Variation 14.1 % (11.5-14.5); RDW Standard Deviation 47.9 fL (36.4-46.3); Red Blood Count 4.18 M/uL (4.2-5.4); White Blood Count 9.91 K/uL (4.8-10.8)
[2020-12-28 07:11] LABS: BUN Creatinine Ratio 24.6 (10-20); Calcium 8.8 mg/dl (8.5-10.1); Creatinine Clr Calc Pharmacy 84.7 ml/min; Est GFR (African American) 90.1 ml/min; Est GFR (Non-African American) 77.7 ml/min; Potassium 3.9 mmol/L (3.5-5.1)
--- NOTE | 2020-12-28 08:24 | Discharge Summary ---
Date of Service December 28, 2020 Admission HPI Per Admitting Provider This is a 52-year-old female presents with worsening neck and arm symptoms. Failing since course of nonoperative care she is here for surgical invention. Principal Diagnosis Cervical spinal stenosis with radiculopathy Discharge Data Allergies Allergy/AdvReac Type Severity Reaction Status Date / Time Iodinated Contrast Media Allergy Severe Anaphylaxis Verified 12/27/20 06:11 [Iodinated Contrast- Oral and IV Dye] Cephalosporins Allergy Intermediate Hives Verified 12/27/20 06:11 cephalexin [From Keflex] Allergy Unknown Hives Verified 12/27/20 06:11 gabapentin AdvReac Intermediate Facial Verified 12/27/20 06:11 tremors clarithromycin [From Biaxin] AdvReac Unknown Nausea, Verified 12/27/20 06:11 headache epinephrine AdvReac Unknown Heart Verified 12/27/20 06:11 racing, severe headache fentanyl AdvReac Unknown Headache Verified 12/27/20 06:11 lidocaine AdvReac Unknown Headache Verified 12/27/20 06:11 (with lidocaine patch) BEE STING Allergy Severe Severe Uncoded 12/27/20 06:11 swelling, dyspnea, anaphylaxis Consultations 12/27/20 13:59 Consult Hospitalist Routine Procedures Performed Operation Date: 12/27/20 07:45 Actual Procedures p C5-C7 Anterior Cervical Discetomy and Fusion, Spinal Cord Monitoring(Not Applicable) - Blair Gunderson DO Ordered Studies 12/27/20 07:45 FL cervical 2-3V Routine Hospital Course (1) Cervical stenosis of spinal canal: Patient went anterior cervical discectomy and fusion tolerated this well was taken to orthopedic for postoperative. Postop day 1 she was swallowing well no hoarseness arm symptoms markedly improved. Pain well controlled. Excellent strength testing. TIFFANY drain decreasing appropriately. Subsequently discharged home. Discharge orders and instructions found the chart for further review. Total Time Total Time Spent Total Time Spent (In Minutes): 20 minutes Discharge Plan Discharge Items Patient Disposition: Home - Self-Care Reason For Visit: Spinal Stenosis, Cervical Region Discharge Diagnosis: Cervical spinal stenosis with radiculopathy Activity: As commented below Non-emergency contact: Primary Care Provider Call non-emergency contact if: you have any medication questions Follow-up/Referrals: Brad Long MD [Primary Care Provider] - Diet: Regular Addtl Attending Provider Instructions: ACTIVITY RECOMMENDATIONS: SELF CARE INSTRUCTIONS AFTER CERVICAL FUSIONS 1. No smoking. Smoking drastically decreases the chance of a solid fusion. 2. No bending, lifting more than 5 pounds, or twisting (roll like a log when turning in bed). 3. You may shower 3 days after surgery. Thoroughly dry wound. Do not soak in the tub. 4. Cervical collar: Must be worn at all times including sleeping. You may remove the brace only to bath, eat and if you are sitting in a recliner. 5. Please walk as much as you can for exercise. Gradually increase the distance that you walk as your endurance increases. SPECIAL CARE INSTRUCTIONS: VERY IMPORTANT TO READ AND REVIEW A. Do not take any anti-inflammatory medications (i.e. Indocin, Advil, Aspirin, Naprosyn, Aleve, Motrin, etc.) as these may inhibit the chance of a solid fusion. Tylenol is okay to take. B. Your surgical incision has been closed with a cosmetic suture under the skin that will dissolve in about 6 weeks. In 14 days, you can use a pair of clean scissors and cut the suture that is left outside of the skin at the ends of your incision. C. Complications are uncommon, but please contact us if you have any signs or symptoms of: 1. wound infection (fever higher than 102.5 degrees F, redness, separation of wound, drainage, or increasing pain from the incision) 2. blood clots in legs (pain, swelling, redness and warmth in legs) 3. urinary tract infection (fever higher than 102.5 degrees, burning upon urination or increased frequency of urination) 4. nerve problems (inability to walk on your toes or heels, numbness, loss of bowel or bladder control) 5. any other symptoms that concern you. D. Please call the office at if you have any concerns or questions about your operation or recovery. MANAGING PAIN AFTER SPINAL SURGERY 1. Narcotic medication is intended for short-term use and will be provided for surgical pain. Surgical pain usually lasts for a period of 4-6 weeks. Narcotic medication includes Percocet, Vicodin, Darvocet, Tylenol #3 or Lortab. 2. Longer-term pain is more appropriately treated with non-narcotic medication such as Tylenol ES. 3. Muscle spasm is not appropriately treated with narcotics. Muscle relaxers such as Soma, Flexeril or Skelaxin can be used along with Tylenol ES. 4. Remember that we all live with some "aches and pains". This is not unusual or uncommon after an injury or as we get older. 5. We will provide appropriate medication within the normal guidelines of their prescribed use. We will also be very cautious and aware of potential abuse and extended duration of patients' medication needs. 6. Please allow 2-3 days to process refills. Prescriptions will not be mailed but must be picked up at the office. FOLLOW UP VISIT: Keep your scheduled follow-up appointment. Any questions, please call the office at . Pending Studies at Discharge: No Stand-Alone Forms: My [facility], Smoking Cessation Medications and DC Order Prescriptions: New tramadol 50 mg tablet 50 mg PO Q6H PRN (Reason: pain, moderate) Qty: 20 RF: 0 oxycodone 5 mg tablet 5 mg PO Q6H PRN (Reason: pain, severe) Qty: 20 RF: 0 Continued metoprolol tartrate 100 mg Tablet 50 mg PO QAM Qty: 0 RF: 0 valsartan-hydrochlorothiazide [Diovan HCT] 160-25 mg Tablet 1 tab PO QAM Qty: 0 RF: 0 solifenacin [Vesicare] 10 mg Tablet 10 mg PO QAM RF: 0 Airborne (ascorbate sodium) 333-1.7 mg Tablet,Chewable 2 tab PO QAM RF: 0 Discontinued ibuprofen 400 mg Tablet 400 mg PO Q6H PRN (Reason: Pain) RF: 0 Discharge Orders: Discharge Order (Routine); Ordered 12/28/20 Ordered By: Blair Gunderson Admission Data Admit Date/Time: 12/27/20 09:27 Attending Provider: Blair Gunderson Admit Provider: Blair Gunderson Primary Care Provider: Brad Long Other Providers: Nazario Price
[2020-12-28] MEDS ORDERED: hydroCHLOROthiazide 25 MG TAB PO SCH (09:00)
[2020-12-28] MEDS ORDERED: VALSARTAN HYDROCHLOROTHIAZIDE PO SCH (09:00)
[2020-12-28] MEDS ORDERED: dexAMETHasone 8 MG in SYRINGE 0 ML IV SCH (09:00)
[2020-12-28] MEDS ORDERED: METOPROLOL TARTRATE 50 MG TAB PO SCH (09:00)
[2020-12-28] MEDS ORDERED: VALSARTAN 80 MG TAB PO SCH (09:00)
[2020-12-28 09:08] LABS: Estimated Average Glucose 140 mg/dl; Hemoglobin A1C 6.5 % (4.5-5.6)
--- NOTE | 2020-12-28 12:18 | Electrocardiogram Report ---
Test Reason : Blood Pressure : / mmHG Vent. Rate : 052 BPM Atrial Rate : 052 BPM P-R Int : 156 ms QRS Dur : 084 ms QT Int : 436 ms P-R-T Axes : 053 015 029 degrees QTc Int : 405 ms Sinus bradycardia Otherwise normal ECG When compared with ECG of 27-DEC-2020 14:13, No significant change was found Confirmed by Jensen Valenzuela ([id number]) on 12/28/2020 12:18:28 PM Referred By: Blair Gunderson Confirmed By:Jensen Valenzuela
--- NOTE | 2020-12-28 17:15 | Hospitalist Progress Note ---
Date of Service December 28, 2020 Assessment & Plan (1) S/P spinal surgery: (2) Sinus bradycardia: Plan: 60-year-old lady with PMH of SVT/PVCs status post ablation, sinus bradycardia, asthma, hypertension, hyperlipidemia was consulted for bradycardia status post ACDF 12/[address] Gunderson. She is being managed in the floor for the following: #. Sinus bradycardia Patient has history of heart rate in 50s to 60s, patient is on metoprolol Slightly exacerbated postoperatively likely secondary to anesthesia, also patient had taken her metoprolol earlier today. Patient did not have symptoms at bedside, did not have symptoms in the past as well. Can resume metoprolol as usual. Okay to DC from medical standpoint. #. Status post spinal surgery Status post ACDF 12/[address] Gunderson, EBL 20 mL Management per Ortho. Monitor for acute blood loss anemia, preop hemoglobin 12.8 #. Other chronic medical condition Continue home medications Admission and Anticipated Discharge Date Admission Date: December 27, 2020 Subjective Patient was sitting up in chair, NAD, on room air, does not report any new events overnight. Denies fever/headache/chills/chest pain/palpitations/sore throat/belly pain/acute changes in bowel bladder habit. States that she is passing flatus. Her pain is under control. Physical Exam Physical Exam: GENERAL: Alert and oriented x3. NAD, on RA. HEENT: No pallor, no icterus. Pupils equal, round and reactive to light. Oral mucosa moist. Drain in situ. NECK: No JVD, no neck masses. HEART: S1 and S2 heard. Regular rate and rhythm. No murmur, no gallop. RESPIRATORY SYSTEM: Normal AP diameter. No accessory muscle use. No wheezing, no crackles. ABDOMEN: Soft, bowel sounds present, nontender, no distention. CENTRAL NERVOUS SYSTEM: Alert and oriented x3. No facial droop. Speech is clear. Obeys simple commands. Moves extremities. EXTREMITIES: No edema, no erythema seen. Results & Data Results & Data ([facility]) Vital Signs (Past 12 Hours) Vital Signs Temp Pulse Pulse Pulse Resp BP Pulse Ox 12/28/20 11:33 66 16 96 12/28/20 11:23 36.7 C 53 L 56 L 18 151/81 H 92 12/28/20 11:15 36.7 C 56 L 18 151/81 H 92 12/28/20 08:29 36.6 C 50 L 16 133/61 96 12/28/20 08:05 63 16 90 12/28/20 08:00 74 12/28/20 06:39 36.1 C L 52 L 16 143/80 H 95
== END 2020-12-28 12:00 | disposition home or self-care (01) ==
LOC: ASU 05:51 → PACUINP 09:27 → INTOOBSV 09:27 → 3E 13:46 → 2S 14:30